=== PATIENT | female | born 1980 | race Caucasian/White ===

== ENCOUNTER 2019-03-29 18:17 | Emergency (ER) | payer MEDICAID ==
[~2019-03-29] VITALS: Ht 160 cm; Wt 76.7 kg
[2019-03-29 18:50] VITALS: BP 164/103; Ht 160 cm; Wt 76.7 kg
== END 2019-03-29 20:34 | disposition home or self-care (01) ==
LOC: ED 18:17
DX: S61.211A Laceration without foreign body of left index finger without damage to nail, initial encounter (principal); W26.0XXA Contact with knife, initial encounter; Y93.89 Activity, other specified; Y92.89 Other specified places as the place of occurrence of the external cause; Y99.8 Other external cause status
CPT/HCPCS: 90715; A4570; J2001

== ENCOUNTER 2019-03-31 20:09 | Emergency (ER) | payer SELFPAY ==
[~2019-03-31] VITALS: Ht 160 cm; Wt 75.7 kg
[2019-03-31 20:19] VITALS: Ht 160 cm; Wt 75.7 kg
[2019-03-31 21:02] VITALS: BP 149/99
== END 2019-03-31 21:02 | disposition home or self-care (01) ==
LOC: ED 20:09
DX: S61.211D Laceration without foreign body of left index finger without damage to nail, subsequent encounter (principal); X58.XXXD Exposure to other specified factors, subsequent encounter

== ENCOUNTER 2019-04-10 20:40 | Emergency (ER) | payer SELFPAY ==
[~2019-04-10] VITALS: Ht 160 cm; Wt 72.6 kg
[2019-04-10 20:44] VITALS: Ht 160 cm; Wt 72.6 kg
[2019-04-10 22:27] VITALS: BP 168/95
== END 2019-04-10 22:27 | disposition home or self-care (01) ==
LOC: ED 20:40
DX: S61.211D Laceration without foreign body of left index finger without damage to nail, subsequent encounter (principal); X58.XXXD Exposure to other specified factors, subsequent encounter